=== PATIENT | female | born 1980 | race Caucasian/White ===

== ENCOUNTER 2018-10-12 08:00 | Outpatient (CLI) | payer OTHER | END 2018-10-12 10:00 | disposition home or self-care (01) | LOC: NUCLEAR 08:00 | DX: C54.1 Malignant neoplasm of endometrium (principal) | CPT/HCPCS: 78815; A9552 ==

== ENCOUNTER 2020-07-24 08:30 | Outpatient (CLI) | payer OTHER | END 2020-07-24 08:38 | disposition home or self-care (01) | LOC: NUCLEAR 08:30 | PROVIDERS: ATTEND Internal Medicine Hematology & Oncology | DX: C54.1 Malignant neoplasm of endometrium (principal) | CPT/HCPCS: 78816; A9552 ==